=== PATIENT | female | born 1995 | race Caucasian/White ===

== ENCOUNTER 2016-07-31 04:58 | Emergency (ER) | payer OTHER | END 2016-07-31 06:06 | disposition home or self-care (01) | LOC: SED 04:58 | DX: S39.012A Strain of muscle, fascia and tendon of lower back, initial encounter (principal); X58.XXXA Exposure to other specified factors, initial encounter; Y93.89 Activity, other specified; Y92.9 Unspecified place or not applicable | CPT/HCPCS: 96372; 99283; J1885 ==